=== PATIENT | male | born 1965 | race Caucasian/White ===

== ENCOUNTER 2020-07-27 13:48 | Outpatient (CLI) | payer OTHER, SELFPAY ==
--- NOTE | 2020-07-27 17:46 | XR_ITS ---
WS: [id number] Right hand, 2 views, 07/27/2020 Clinical Data: R21 - Rash and other nonspecific skin eruption Comparison: None. Findings: No fractures or dislocations are seen. The soft tissues are unremarkable. The joint space s are normal No periarticular demineralization or calcifications are seen. XR/XR hand RT 2V [id number] Impression: Negative right hand.
--- NOTE | 2020-07-27 17:46 | XR_ITS ---
WS: [id number] Left foot, 2 views, 07/27/2020 Clinical Data: R21 - Rash and other nonspecific skin eruption Comparison: None. Findings: No fractures or dislocations are seen. No bone destruction or erosion is noted. The joint spaces and soft tissues are normal. No periarticular demineralization or calcifications are seen. There is an Achilles spur. XR/XR foot LT 2V [id number] Impression: Negative left foot.
--- NOTE | 2020-07-27 17:46 | XR_ITS ---
WS: [id number] Lumbar spine, 3 views, 07/27/2020 Clinical Data: R21 - Rash and other nonspecific skin eruption Comparison: None. Findings: No compression fractures or subluxation is seen. There is degenerative disc narrowing at L5-S1. The t ransverse processes and SI joints are normal. There is anterior osteoarthritic change of all the lumbar vertebral bodies. Is a large amount of feca l material throughout the colon. There is minimal calcification of the posterior wall of the abdomina l aorta. XR/XR lumbar spine 2-3V* [id number] Impression: 1. Moderate osteoarthritic spurring of all lumbar vertebral bodies. 2. L5-S1 disc narrowing.
--- NOTE | 2020-07-27 17:46 | XR_ITS ---
WS: [id number] Right foot, 2 views, 07/27/2020 Clinical Data: R21 - Rash and other nonspecific skin eruption Comparison: Right foot, 03/21/2017. Findings: No fractures or dislocations are seen. No bone destruction or erosion is noted. The joint spaces and soft tissues are normal. No periarticular demineralization or calcifications are seen. XR/XR foot RT 2V [id number] Impression: Negative right foot.
--- NOTE | 2020-07-27 17:46 | XR_ITS ---
WS: [id number] Left hand, 2 views, 07/27/2020 Clinical Data: R21 - Rash and other nonspecific skin eruption Comparison: None. Findings: No fractures or dislocations are seen. The soft tissues are unremarkable. The joint spaces are normal No periarticular demineralization or calcifications are seen. XR/XR hand LT 2V [id number] Impression: Negative left hand.
[2020-07-27 18:31] LABS: C Reactive Protein 1.9 mg/L (0.0-4.9); Creatine Phosphokinase 65 U/L (39-308); Phosphorus 4.2 mg/dL (2.5-4.5); Vitamin B12 621 pg/mL (232-1245)
[2020-07-27 19:12] LABS: Hepatitis B Core AB, Total Non-Reactive (Nonreactive); Hepatitis B Surface Antigen Non-Reactive (Nonreactive); Hepatitis C Virus Antibody Non-Reactive (Nonreactive)
[2020-07-27 20:27] LABS: Erythrocyte Sedimentation Rate 9 mm/hr (0-10)
[2020-07-29 14:28] LABS: Cyclic Citrullinated Peptide <16 UNITS
[2020-07-30 11:57] LABS: COMPLEMENT COMPONENT C3C 160 mg/dL (82-185); COMPLEMENT COMPONENT C4C 26 mg/dL (15-53)
[2020-07-30 12:27] LABS: CENTROMERE B ANTIBODY <1.0 NEG AI (<1.0 NEG); JO-1 ANTIBODY <1.0 NEG AI (<1.0 NEG); RNP ANTIBODY <1.0 NEG AI (<1.0 NEG); SCL-70 ANTIBODY <1.0 NEG AI (<1.0 NEG); SJOGREN'S ANTIBODY (SS-A) <1.0 NEG AI (<1.0 NEG); SM ANTIBODY <1.0 NEG AI (<1.0 NEG); SS-B <1.0 NEG AI (<1.0 NEG)
[2020-07-30 12:58] LABS: COMPLEMENT, TOTAL (CH50) >60 U/mL (31-60)
[2020-07-30 14:58] LABS: ANA SCREEN, IFA NEGATIVE (NEGATIVE)
[2020-07-30 17:33] LABS: THYROID PEROXIDASE ANTIBODIES <1 IU/mL (<9)
[2020-08-01 13:59] LABS: HLA-B27 NEGATIVE (NEGATIVE)
[2020-08-01 14:00] LABS: DNA AB (DS) CRITHIDIA,IFA NEGATIVE (NEGATIVE)
== END 2020-07-27 13:49 | disposition home or self-care (01) ==
PROVIDERS: Family Provider Family Medicine; PCP Family Medicine; Visit Provider Internal Medicine
DX: R53.1 Weakness; M25.50 Pain in unspecified joint; R21 Rash and other nonspecific skin eruption; Z11.59 Encounter for screening for other viral diseases; Z11.1 Encounter for screening for respiratory tuberculosis; D86.9 Sarcoidosis, unspecified; M32.9 Systemic lupus erythematosus, unspecified
CPT/HCPCS: 36415; 72100; 73120; 73620; 82550; 82607; 83516; 84100; 85651; 86140; 86431; 86704; 86803; 86812; 87340; 99204

== ENCOUNTER 2020-07-29 11:01 | Outpatient (CLI) | payer OTHER, SELFPAY ==
[2020-07-31 14:33] LABS: Quantiferon Mitogen >10.00 IU/mL; Quantiferon Nil 0.02 IU/mL; Quantiferon TB Gold NEGATIVE (NEGATIVE)
== END 2020-07-29 11:02 | disposition home or self-care (01) ==
LOC: LAB 11:04
PROVIDERS: PCP Family Medicine; Visit Provider Internal Medicine
DX: M32.9 Systemic lupus erythematosus, unspecified (principal); R21 Rash and other nonspecific skin eruption
CPT/HCPCS: 36415; 86480

== ENCOUNTER → 2021-03-23 08:43 | Outpatient (BNVA) | payer OTHER, SELFPAY | PROVIDERS: PCP Family Medicine; Referring Provider Family Medicine; Visit Provider Urology | DX: N52.1 Erectile dysfunction due to diseases classified elsewhere (principal) | CPT/HCPCS: 81003 ==

== ENCOUNTER 2022-01-17 06:50 | Outpatient (CLI) | payer OTHER, SELFPAY ==
--- NOTE | 2022-01-17 07:11 | MR_ITS ---
WS: [id number] MRI LEFT KNEE HISTORY: M25.569 - Pain in unspecified knee COMPARISON: LEFT knee radiograph 10/25/2020 Anterior cruciate ligament: Mild increased signal throughout the ACL. No full-thickness tear. Posterior cruciate ligament: Intact. Medial collateral ligament: Intact. Posterior lateral corner structures: Intact. Medial menisci: Horizontal tear in the posterior horn extends to the inferior articular surface towar ds the free edge and body of the meniscus. Anterior horn is normal. Lateral meniscus: Partially subluxed meniscus from the joint space. Intrasubstance degeneration in th e posterior horn. In the body of the meniscus, seen best on the coronal image is increased T2 signal extending towards but not definitely contacting the inferior articular surface. Extensor mechanism: Distal quadriceps tendon and patellar tendons are intact. Fluid and soft tissue: Small joint effusion. No Padgett's cyst. Osseous and articular structures: Patellofemoral compartment: No marrow edema or chondromalacia. Medial compartment: Mild narrowing of the medial compartment. Very mild surface fraying along the car tilage. Small osteophytes. No marrow edema or fracture. Lateral compartment: Mild narrowing of the lateral compartment. Mild diffuse loss of cartilage with n o focal full-thickness defect. No marrow edema There is mild diffuse soft tissue edema surrounding the knee, greatest medially. MR/MR knee LT wo con* [id number] IMPRESSION: 1. Diffuse subcutaneous and soft tissue edema greatest around the medial knee. 2. Intrasubstance degeneration in the ACL but no tear. 3. Horizontal tear posterior horn medial meniscus extends to the free edge and body. 4. Intrasubstance degeneration in the posterior horn of the lateral meniscus e xtends but does not definitely contact the inferior articular surface. This sig nal predominantly involves the outer third of the meniscus. 5. Mild narrowing of the medial lateral compartments. No fracture or marrow ed demetrio.
== END 2022-01-17 06:51 | disposition home or self-care (01) ==
LOC: RAD 06:52
PROVIDERS: PCP Family Medicine; Visit Provider Family Medicine
DX: M25.562 Pain in left knee (principal)
CPT/HCPCS: 73721

== ENCOUNTER 2022-02-07 06:31 | Outpatient (CLI) | payer MEDICARE, SELFPAY ==
--- NOTE | 2022-02-07 07:19 | MR_ITS ---
WS: [id number] MRI RIGHT KNEE NONCONTRAST TECHNIQUE: Axial PD, coronal PD fat sat, coronal PD, sagittal PD, and sagittal PD fat-sat images obta ined. CLINICAL INFORMATION: PAIN IN RT KNEE COMPARISON: None. FINDINGS: Distal quadriceps and patella tendons are intact. Normal ACL and PCL. Moderate tricompartmental arthr itis. Grade III chondromalacia involving the medial and lateral joint compartments. Diffuse soft tiss ue edema about the knee. Small suprapatellar effusion. Chronic intrasubstance signal abnormality involving the medial and lateral meniscus. Tiny horizontal tear involving the posterior horn medial meniscus extending to the articular surface. Hypertrophic pa tella. Normal medial and lateral patellar retinaculum. Moderate chondromalacia involving the lateral patella facet. Normal MCL and LCL. Normal popliteus. MR/MR knee RT wo con* [id number] IMPRESSION: 1. Moderate tricompartmental arthritis with grade III chondromalacia involving the medial and lateral joint compartments. 2. Moderate chondromalacia patella worse involving the lateral patella facet. 3. Normal ACL and PCL. 4. Soft tissue edema about the knee. Small supra patellar effusion. 5. Tiny horizontal tear involving the posterior horn medial meniscus extending to the periphery. Chronic intrasubstance signal abnormality involving the medi al and lateral meniscus. 6. No other acute findings. Outbridge grading: grade III: partial-thickness cartilage loss with focal ulcer ation
== END 2022-02-07 06:32 | disposition home or self-care (01) ==
PROVIDERS: PCP Family Medicine; Visit Provider Family Medicine
DX: M25.561 Pain in right knee (principal); M13.861 Other specified arthritis, right knee; M22.41 Chondromalacia patellae, right knee; S83.241A Other tear of medial meniscus, current injury, right knee, initial encounter; X58.XXXA Exposure to other specified factors, initial encounter
CPT/HCPCS: 73721

== ENCOUNTER → 2022-02-08 14:41 | Outpatient (BNVA) | payer MEDICARE, SELFPAY | PROVIDERS: PCP Family Medicine; Visit Provider Specialist | DX: M17.0 Bilateral primary osteoarthritis of knee (principal) | CPT/HCPCS: 20610; 73560; 73565; 99213; 99214; J1100; J2795; J3301 ==

== ENCOUNTER → 2022-03-06 08:58 | Outpatient (BNVA) | payer MEDICARE, SELFPAY | PROVIDERS: PCP Family Medicine; Visit Provider Specialist | DX: M17.0 Bilateral primary osteoarthritis of knee (principal); L44.0 Pityriasis rubra pilaris | CPT/HCPCS: 99213; 99214 ==

== ENCOUNTER → 2022-04-19 09:41 | Outpatient (BNVA) | payer MEDICARE, SELFPAY | PROVIDERS: PCP Family Medicine; Visit Provider Nurse Practitioner Family | DX: I96 Gangrene, not elsewhere classified (principal); L97.812 Non-pressure chronic ulcer of other part of right lower leg with fat layer exposed | CPT/HCPCS: 11042; 11045; 87070; 87077; 87176; 87186; 87205; 99203; 99213 ==

== ENCOUNTER → 2022-04-26 09:35 | Outpatient (BNVA) | payer MEDICARE, SELFPAY | PROVIDERS: PCP Family Medicine; Visit Provider Thoracic Surgery (Cardiothoracic Vascular Surgery) | DX: I96 Gangrene, not elsewhere classified (principal); L97.812 Non-pressure chronic ulcer of other part of right lower leg with fat layer exposed | CPT/HCPCS: 11043; 11046 ==

== ENCOUNTER → 2022-05-01 10:40 | Outpatient (BNVA) | payer MEDICARE, SELFPAY | PROVIDERS: PCP Family Medicine; Visit Provider Thoracic Surgery (Cardiothoracic Vascular Surgery) | DX: I96 Gangrene, not elsewhere classified (principal); L97.812 Non-pressure chronic ulcer of other part of right lower leg with fat layer exposed | CPT/HCPCS: 11042; 11045; 97605; A6237 ==

== ENCOUNTER → 2022-05-08 10:27 | Outpatient (BNVA) | payer MEDICARE, SELFPAY | PROVIDERS: PCP Family Medicine; Visit Provider Thoracic Surgery (Cardiothoracic Vascular Surgery) | DX: I96 Gangrene, not elsewhere classified (principal); L97.812 Non-pressure chronic ulcer of other part of right lower leg with fat layer exposed | CPT/HCPCS: 11042; 11045; 97605; A6237; A6250; A6252 ==

== ENCOUNTER → 2022-05-15 10:35 | Outpatient (BNVA) | payer MEDICARE, SELFPAY | PROVIDERS: PCP Family Medicine; Visit Provider Thoracic Surgery (Cardiothoracic Vascular Surgery) | DX: T81.89XA Other complications of procedures, not elsewhere classified, initial encounter (principal); Y83.8 Other surgical procedures as the cause of abnormal reaction of the patient, or of later complication, without mention of misadventure at the time of the procedure; I96 Gangrene, not elsewhere classified | CPT/HCPCS: 97597; 97598; 97605; A6210; A6237; A6250 ==

== ENCOUNTER → 2022-05-23 10:21 | Outpatient (BNVA) | payer MEDICARE, SELFPAY | PROVIDERS: PCP Family Medicine; Visit Provider Nurse Practitioner Family | DX: I96 Gangrene, not elsewhere classified (principal); L97.812 Non-pressure chronic ulcer of other part of right lower leg with fat layer exposed | CPT/HCPCS: 11042; 11045; A6021 ==

== ENCOUNTER → 2022-05-29 10:23 | Outpatient (BNVA) | payer MEDICARE, SELFPAY | PROVIDERS: PCP Family Medicine; Visit Provider Nurse Practitioner Family | DX: I96 Gangrene, not elsewhere classified (principal); L97.812 Non-pressure chronic ulcer of other part of right lower leg with fat layer exposed | CPT/HCPCS: 11042; 11045 ==

== ENCOUNTER → 2022-06-05 09:17 | Outpatient (BNVA) | payer MEDICARE, SELFPAY | PROVIDERS: PCP Family Medicine; Visit Provider Thoracic Surgery (Cardiothoracic Vascular Surgery) | DX: I96 Gangrene, not elsewhere classified (principal); L97.812 Non-pressure chronic ulcer of other part of right lower leg with fat layer exposed | CPT/HCPCS: 97597; 97598; A6210 ==

== ENCOUNTER → 2022-06-12 09:43 | Outpatient (BNVA) | payer MEDICARE, SELFPAY | PROVIDERS: PCP Family Medicine; Visit Provider Thoracic Surgery (Cardiothoracic Vascular Surgery) | DX: I96 Gangrene, not elsewhere classified (principal); L97.812 Non-pressure chronic ulcer of other part of right lower leg with fat layer exposed | CPT/HCPCS: 11042; 11045; A6210 ==

== ENCOUNTER → 2022-07-05 10:28 | Outpatient (BNVA) | payer MEDICARE, SELFPAY | PROVIDERS: PCP Family Medicine; Visit Provider Thoracic Surgery (Cardiothoracic Vascular Surgery) | DX: T81.31XD Disruption of external operation (surgical) wound, not elsewhere classified, subsequent encounter (principal); Y83.8 Other surgical procedures as the cause of abnormal reaction of the patient, or of later complication, without mention of misadventure at the time of the procedure; I96 Gangrene, not elsewhere classified | CPT/HCPCS: 97597; A6212 ==

== ENCOUNTER → 2022-07-10 13:18 | Outpatient (BNVA) | payer MEDICARE, SELFPAY | PROVIDERS: PCP Family Medicine; Visit Provider Thoracic Surgery (Cardiothoracic Vascular Surgery) | DX: T81.31XD Disruption of external operation (surgical) wound, not elsewhere classified, subsequent encounter (principal); Y83.8 Other surgical procedures as the cause of abnormal reaction of the patient, or of later complication, without mention of misadventure at the time of the procedure; I96 Gangrene, not elsewhere classified | CPT/HCPCS: 97597 ==

== ENCOUNTER 2025-01-11 21:01 | Observation (INO) | payer MEDICARE, SELFPAY ==
[2025-01-11 21:06] VITALS: BP 151/81; PULSE 90; RESP 20; TEMP 37.9; O2SAT 95; BMI 28.2
--- NOTE | 2025-01-11 21:37 | XRR_ITS ---
PROCEDURE INFORMATION: Exam: XR Chest Exam date and time: 01/11/2025 9:55 PM Age: 59 years old Clinical indication: Shortness of breath; Lt lower lat chest/rib pain; No known injury; Excessive coughing TECHNIQUE: Imaging protocol: Radiologic exam of the chest. Views: 1 view. COMPARISON: No relevant prior studies available. FINDINGS: Lungs: There is peribronchial infiltrate in the left lower lobe which could represent some bronchitis or bronchopneumonia. There is mild peribronchial infiltrate in the right lower lobe and small rounded area of infiltrate peripherally at the right lung base also. Pleural spaces: Unremarkable. No pleural effusion. No pneumothorax. Heart/Mediastinum: Heart is within normal limits of size. Bones/joints: There are degenerative changes in the thoracic spine. There is healing fracture of the posterior left 7th rib. XR/XR chest 1V portable [id number] IMPRESSION: Basilar infiltrates which could represent some bronchitis or bronchopneumonia.
--- NOTE | 2025-01-11 21:38 | W.ED.SOB ---
Documented by User: MIRANDA Cook 01/11/25 23:59 HPI - SOB/Dyspnea General: Chief Complaint: Shortness of Breath/Dyspnea Stated Complaint: SOB\ABD Pain Time Seen by Provider: 01/11/25 21:14 Source: patient Mode of arrival: ambulatory Limitations: no limitations History of Present Illness: HPI Narrative: Patient is a 59-year-old male who presents to ED today with a main complaint of productive cough, shortness of breath, and bilateral rib pain. Patient states he has been ill for 3 to 4 days. He states he is coughing so much that his ribs are hurting. He has gotten very little rest secondary to his illness. No known fevers. He does report sweating although attributes this to possible opiate withdrawal. He states he was on chronic oxycodone 4 times a day over the past 2.5 years and reportedly quit this medication cold . He is complaining of diffuse abdominal pain. He has not had any vomiting. He does report a large amount of bowel movements over the past few days after stopping the opiates. No recent surgeries. No hemoptysis. MD elicited complaint: shortness of breath, cough and pain with inspiration Onset (ago): day(s) Timing: constant Severity: moderate Exacerbating factors: coughing Relieving factors: nothing Associated symptoms: Reports abdominal pain, chest congestion and chest pain (bilateral rib pain); Deny dizziness, extremity pain, fever(s), hemoptysis, lightheadedness, palpitations, syncope or vomiting Treatment prior to arrival: none Related Data Home Medications ?Medication ?Instructions ?Recorded ?Confirmed aspirin 81 mg tablet,delayed 81 mg PO DAILY 07/27/20 01/12/25 release (Adult Aspirin Regimen) nitroglycerin 0.4 mg sublingual 0.4 mg sublingual Q5M PRN Chest 07/27/20 01/12/25 tablet Pain spironolactone 25 mg tablet 25 mg PO DAILY 07/27/20 01/12/25 oxycodone 5 mg capsule 10 mg PO Q4H PRN Pain 03/23/21 01/12/25 Allergies Allergy/AdvReac Type Severity Reaction Status Date / Time coconut Allergy ALGY-Anaphy Verified 01/11/25 21:10 laxis Review of Systems Const: Reports: body aches; Denies: fever(s) ENMT: Denies: throat pain, odynophagia, ear or mastoid pain, nasal discharge, nasal congestion or sinus pain Card: Reports: chest pain (bilateral rib pain); Denies: palpitations, irregular heart rhythm, edema, swelling of feet/ankles, lightheadedness, syncope or pre-syncope Resp: Reports: dyspnea, productive cough, pain on inspiration, change in phlegm color and chest congestion; Denies: wheezing or hemoptysis GI: Reports: abdominal pain; Denies: vomiting or diarrhea : Denies: flank pain or dysuria Musc: Denies: neck pain, back pain, extremity pain, extremity swelling, joint pain, joint swelling or joint redness Skin/Breast: Denies: rash Neuro: Denies: headache(s) or dizziness PFSH ED PFSH: Medical History Pityriasis rubra Anxiety and depression Erectile dysfunction CAD (coronary artery disease) Surgical History History of tonsillectomy and adenoidectomy History of left ventricular assist device (LVAD) Family History Mother Diabetes Father Diabetes Hypertension Grandmother Diabetes Grandfather Diabetes Denies family history of Lupus (systemic lupus erythematosus) Rheumatoid arthritis Social History Smoking and tobacco/nicotine status: former use of tobacco/nicotine Alcohol intake: never Substance/Drug Use: never Marital status: / Current occupational status: disabled Physical Exam Const: COMMON NORMALS: no acute distress, average body habitus, patient oriented x3, no limitations, alert and well nourished GENERAL APPEARANCE: cooperative and ill appearing (mild) OTHER: low grade fevers HENMT: COMMON NORMALS: normocephalic and atraumatic HEAD & SCALP: normal to inspection, normocephalic and atraumatic Neck/C-Spine: COMMON NORMALS: no lymphadenopathy Chest: OTHER: bilateral lower rib pain; no crepitus Resp: COMMON NORMALS: normal respiratory effort AUSCULTATION: rhonchi Cardio: COMMON NORMALS: regular rate and regular rhythm RATE: regular rate RHYTHM: regular rhythm GI: COMMON NORMALS: Normal to inspection, nondistended, normoactive bowel sounds present, Soft to palpation and no masses INSPECTION: Yes normal to inspection AUSCULTATION: Yes normoactive bowel sounds PALPATION: Yes Soft to palpation and Yes Tenderness to palpation present (GI) (diffuse) : COMMON NORMALS: Yes no CVA tenderness BLADDER/KIDNEY EXAM: Yes no CVA tenderness Back/Pelvis: COMMON NORMALS: no CVA tenderness Extremity: COMMON NORMALS: no calf tenderness and no pedal edema NARRATIVE EXTREMITY EXAM: R lower leg amputation GENERAL: Yes normal exam except as noted Neuro: COMMON NORMALS: patient oriented x3 SENSORIUM/ORIENTATION: Yes alert Course Consultations: Consultation #1: Dr. Riley-agreeable to admit to obs Vital Signs: Vital signs: Vital Signs Temperature 98.7 F 01/12/25 04:00 Pulse Rate 92 01/12/25 04:00 Respiratory Rate 19 H 01/12/25 04:00 Blood Pressure 151/76 01/12/25 04:00 Pulse Oximetry 96 01/12/25 04:00 Oxygen Delivery Me thod Room Air 01/12/25 04:00 Oxygen Flow Rate 2 01/11/25 22:06 MDM - SOB/Dyspnea Medical Decision Making Patient has bilateral basilar infiltrates most likely consistent with bronchopneumonia given his low-grade fevers. He has a normal white count. His lactic is normal. He is not requiring oxygen. Procalcitonin is normal. His BNP is elevated at roughly 4500. No known history of CHF. He is not complaining of weight gain or swelling. Discussed potentially treating with IV antibiotics here in the ED and allowing discharge with oral antibiotics however patient is adamant he needs to be admitted to the hospital. Spoke to Dr. Riley who is agreeable to observation. Medical Records I reviewed the patient's medical records. Lab Data I reviewed the patient's lab results. 01/12/25 03:41 01/12/25 03:41 Labs/Radiology: Radiology Impressions Chest X-Ray 01/11/25 21:37 IMPRESSION: Basilar infiltrates which could represent some bronchitis or bronchopneumonia. Chest/Abdomen/Pelvis CT 01/11/25 22:07 IMPRESSION: Nodular pulmonary infiltrate worrisome for infectious or inflammatory disease, mostly involving the left lower lobe. IMPRESSION: 1. Cholelithiasis 2. No acute findings in the abdomen or pelvis. Laboratory Results WBC 6.07 10^3/uL (3.29-11.43) 01/11/25 21:45 RBC 4.19 10^6/uL (3.85-5.65) 01/11/25 21:45 Hgb 11.80 g/dL (11.27-16.99) 01/11/25 21:45 Hct 37.0 % (37-53) 01/11/25 21:45 MCV 88.3 fl (82-101) 01/11/25 21:45 MCH 28.2 pg (27-33) 01/11/25 21:45 MCHC 31.9 g/dL (30-55) 01/11/25 21:45 RDW 14.0 % (12.1-15.1) 01/11/25 21:45 Plt Count 189 10^3/cmm (157-399) 01/11/25 21:45 MPV 9.6 fL (7.4-10.4) 01/11/25 21:45 Neut % (Auto) 81.9 % 01/11/25 21:45 Lymph % (Auto) 9.7 % 01/11/25 21:45 Greer % (Auto) 7.6 % 01/11/25 21:45 Eos % (Auto) 0.0 % 01/11/25 21:45 Baso % (Auto) 0.3 % 01/11/25 21:45 Neut # (Auto) 4.97 10^3/uL (1.8-7.7) 01/11/25 21:45 Lymph # (Auto) 0.6 10^3/uL (0.8-4.8) L 01/11/25 21:45 Greer # (Auto) 0.5 10^3/uL (0.2-0.9) 01/11/25 21:45 Eos # (Auto) 0.0 10^3/uL (0.0-0.8) 01/11/25 21:45 Baso # (Auto) 0.0 10^3/uL (0.0-0.1) 01/11/25 21:45 Nucleated RBC % (auto) 0 % 01/11/25 21:45 Nucleated RBCs # 0.0 /100WBC 01/11/25 21:45 Sodium 132 mmol/L (136-145) L 01/11/25 21:45 Potassium 3.7 mmol/L (3.5-5.1) 01/11/25 21:45 Chloride 93 mmol/L (98-107) L 01/11/25 21:45 Carbon Dioxide 29 mmol/L (22-29) 01/11/25 21:45 Anion Gap 13.7 (5-19) 01/11/25 21:45 BUN 12 mg/dL (8-23) 01/11/25 21:45 Creatinine 0.8 mg/dL (0.7-1.2) 01/11/25 21:45 GFR Calculation 98.6 mL/min (90-130) 01/11/25 21:45 Glucose 212 mg/dL (65-115) H 01/11/25 21:45 Calculated Osmolality 280 mOsm/kg (285-295) L 01/11/25 21:45 Lactic Acid 1.5 mmol/L (0.5-2.2) 01/11/25 21:45 Calcium 8.3 mg/dL (8.5-10.5) L 01/11/25 21:45 Total Bilirubin 0.7 mg/dL (0.15-1.2) 01/11/25 21:45 AST 17 U/L (0-40) 01/11/25 21:45 ALT 11 U/L (0-41) 01/11/25 21:45 Alkaline Phosphatase 73 U/L (40-130) 01/11/25 21:45 Troponin T Baseline 29 ng/L (0-15) H 01/11/25 21:45 Troponin T 120 Minute 28.46 ng/L (0-15) H 01/11/25 23:45 Delta Troponin T -0.54 ABS# (0-10) L 01/11/25 23:45 NT-Pro-B Natriuret Pep 4589 pg/mL (0-125) H 01/11/25 21:45 Total Protein 6.8 g/dL (6.6-8.7) 01/11/25 21:45 Albumin 3.5 g/dL (3.5-5.2) 01/11/25 21:45 Globulin 3.3 g/dL (1.3-4.6) 01/11/25 21:45 Procalcitonin 0.05 ng/mL (0-0.5) 01/11/25 21:45 Influenza A (PCR) Negative (Negative) 01/11/25 22:01 Influenza Type B (PCR) Negative (Negative) 01/11/25 22:01 RSV (PCR) Negative (Negative) 01/11/25 22:01 SARS-CoV-2 (PCR) Negative (Negative) 01/11/25 22:01 All radiology interpretation(s) finalized by discharge Discharge Plan Discharge Patient Disposition: Placed in Observation Admit Provider: Gurvinder Riley Clinical Impression: Bilateral pneumonia Qualifiers: Pneumonia type: due to unspecified organism Lung location: lower lobe of lung Qualified Code(s): J18.9 - Pneumonia, unspecified organism Coding Level of Care Code ED Repertoire Manager for Chg Fwd Documented by User: Horace Daniels DO 01/12/25 04:29 HPI - SOB/Dyspnea General: Chief Complaint: Shortness of Breath/Dyspnea Stated Complaint: SOB\ABD Pain Time Seen by Provider: 01/11/25 21:14 Related Data Home Medications ?Medication ?Instructions ?Recorded ?Confirmed aspirin 81 mg tablet,delayed 81 mg PO DAILY 07/27/20 01/12/25 release (Adult Aspirin Regimen) nitroglycerin 0.4 mg sublingual 0.4 mg sublingual Q5M PRN Chest 07/27/20 01/12/25 tablet Pain spironolactone 25 mg tablet 25 mg PO DAILY 07/27/20 01/12/25 oxycodone 5 mg capsule 10 mg PO Q4H PRN Pain 03/23/21 01/12/25 Allergies Allergy/AdvReac Type Severity Reaction Status Date / Time coconut Allergy ALGY-Anaphy Verified 01/11/25 21:10 laxis [facility] ED PFSH: Medical History Pityriasis rubra Anxiety and depression Erectile dysfunction CAD (coronary artery disease) Surgical History History of tonsillectomy and adenoidectomy History of left ventricular assist device (LVAD) Family History Mother Diabetes Father Diabetes Hypertension Grandmother Diabetes Grandfather Diabetes Denies family history of Lupus (systemic lupus erythematosus) Rheumatoid arthritis Social History Smoking and tobacco/nicotine status: former use of tobacco/nicotine Alcohol intake: never Substance/Drug Use: never Marital status: / Current occupational status: disabled Course Vital Signs: Vital signs: Vital Signs Temperature 98.7 F 01/12/25 04:00 Pulse Rate 92 01/12/25 04:00 Respiratory Rate 19 H 01/12/25 04:00 Blood Pressure 151/76 01/12/25 04:00 Pulse Oximetry 96 01/12/25 04:00 Oxygen Delivery Me thod Room Air 01/12/25 04:00 Oxygen Flow Rate 2 01/11/25 22:06 MDM - SOB/Dyspnea Medical Decision Making Patient has bilateral basilar infiltrates most likely consistent with bronchopneumonia given his low-grade fevers. He has a normal white count. His lactic is normal. He is not requiring oxygen. Procalcitonin is normal. His BNP is elevated at roughly 4500. No known history of CHF. He is not complaining of weight gain or swelling. Discussed potentially treating with IV antibiotics here in the ED and allowing discharge with oral antibiotics however patient is adamant he needs to be admitted to the hospital. Spoke to Dr. Riley who is agreeable to observation. This patient was originally seen by Mrs. Cox?MARLENE Daniel? I agree with her history, evaluation, and treatment. Lab Data 01/12/25 03:41 01/12/25 03:41 Labs/Radiology: Radiology Impressions Chest X-Ray 01/11/25 21:37 IMPRESSION: Basilar infiltrates which could represent some bronchitis or bronchopneumonia. Chest/Abdomen/Pelvis CT 01/11/25 22:07 IMPRESSION: Nodular pulmonary infiltrate worrisome for infectious or inflammatory disease, mostly involving the left lower lobe. IMPRESSION: 1. Cholelithiasis 2. No acute findings in the abdomen or pelvis. Laboratory Results WBC 6.07 10^3/uL (3.29-11.43) 01/11/25 21:45 RBC 4.19 10^6/uL (3.85-5.65) 01/11/25 21:45 Hgb 11.80 g/dL (11.27-16.99) 01/11/25 21:45 Hct 37.0 % (37-53) 01/11/25 21:45 MCV 88.3 fl (82-101) 01/11/25 21:45 MCH 28.2 pg (27-33) 01/11/25 21:45 MCHC 31.9 g/dL (30-55) 01/11/25 21:45 RDW 14.0 % (12.1-15.1) 01/11/25 21:45 Plt Count 189 10^3/cmm (157-399) 01/11/25 21:45 MPV 9.6 fL (7.4-10.4) 01/11/25 21:45 Neut % (Auto) 81.9 % 01/11/25 21:45 Lymph % (Auto) 9.7 % 01/11/25 21:45 Greer % (Auto) 7.6 % 01/11/25 21:45 Eos % (Auto) 0.0 % 01/11/25 21:45 Baso % (Auto) 0.3 % 01/11/25 21:45 Neut # (Auto) 4.97 10^3/uL (1.8-7.7) 01/11/25 21:45 Lymph # (Auto) 0.6 10^3/uL (0.8-4.8) L 01/11/25 21:45 Greer # (Auto) 0.5 10^3/uL (0.2-0.9) 01/11/25 21:45 Eos # (Auto) 0.0 10^3/uL (0.0-0.8) 01/11/25 21:45 Baso # (Auto) 0.0 10^3/uL (0.0-0.1) 01/11/25 21:45 Nucleated RBC % (auto) 0 % 01/11/25 21:45 Nucleated RBCs # 0.0 /100WBC 01/11/25 21:45 Sodium 132 mmol/L (136-145) L 01/11/25 21:45 Potassium 3.7 mmol/L (3.5-5.1) 01/11/25 21:45 Chloride 93 mmol/L (98-107) L 01/11/25 21:45 Carbon Dioxide 29 mmol/L (22-29) 01/11/25 21:45 Anion Gap 13.7 (5-19) 01/11/25 21:45 BUN 12 mg/dL (8-23) 01/11/25 21:45 Creatinine 0.8 mg/dL (0.7-1.2) 01/11/25 21:45 GFR Calculation 98.6 mL/min (90-130) 01/11/25 21:45 Glucose 212 mg/dL (65-115) H 01/11/25 21:45 Calculated Osmolality 280 mOsm/kg (285-295) L 01/11/25 21:45 Lactic Acid 1.5 mmol/L (0.5-2.2) 01/11/25 21:45 Calcium 8.3 mg/dL (8.5-10.5) L 01/11/25 21:45 Total Bilirubin 0.7 mg/dL (0.15-1.2) 01/11/25 21:45 AST 17 U/L (0-40) 01/11/25 21:45 ALT 11 U/L (0-41) 01/11/25 21:45 Alkaline Phosphatase 73 U/L (40-130) 01/11/25 21:45 Troponin T Baseline 29 ng/L (0-15) H 01/11/25 21:45 Troponin T 120 Minute 28.46 ng/L (0-15) H 01/11/25 23:45 Delta Troponin T -0.54 ABS# (0-10) L 01/11/25 23:45 NT-Pro-B Natriuret Pep 4589 pg/mL (0-125) H 01/11/25 21:45 Total Protein 6.8 g/dL (6.6-8.7) 01/11/25 21:45 Albumin 3.5 g/dL (3.5-5.2) 01/11/25 21:45 Globulin 3.3 g/dL (1.3-4.6) 01/11/25 21:45 Procalcitonin 0.05 ng/mL (0-0.5) 01/11/25 21:45 Influenza A (PCR) Negative (Negative) 01/11/25 22:01 Influenza Type B (PCR) Negative (Negative) 01/11/25 22:01 RSV (PCR) Negative (Negative) 01/11/25 22:01 SARS-CoV-2 (PCR) Negative (Negative) 01/11/25 22:01 Discharge Plan Discharge Patient Disposition: Placed in Observation Admit Provider: Gurvinder Riley Clinical Impression: Bilateral pneumonia Qualifiers: Pneumonia type: due to unspecified organism Lung location: lower lobe of lung Qualified Code(s): J18.9 - Pneumonia, unspecified organism Coding Level of Care Code ED Repertoire Manager for Jaspreet Gonzales
[2025-01-11 21:52] LABS: Basophils % 0.3 %; Lymphocytes # 0.6 10^3/uL (0.8-4.8); Lymphocytes % 9.7 %; Mean Corpuscular HGB Conc 31.9 g/dL (30-55); Mean Corpuscular Hemoglobin 28.2 pg (27-33); Mean Corpuscular Volume 88.3 fl (82-101); Mean Platelet Volume 9.6 fL (7.4-10.4); Monocytes # 0.5 10^3/uL (0.2-0.9); Monocytes % 7.6 %; Neutrophils # 4.97 10^3/uL (1.8-7.7); Neutrophils % 81.9 %; Nucleated Red Blood Cells % 0 %; Platelet Count 189 10^3/cmm (157-399); Red Blood Count 4.19 10^6/uL (3.85-5.65); White Blood Count 6.07 10^3/uL (3.29-11.43)
[2025-01-11] MEDS: ketorolac 30 mg/mL INJ IVP (22:05)
[2025-01-11 22:06] VITALS: PULSE 80; RESP 20; O2SAT 97
--- NOTE | 2025-01-11 22:07 | CTR_ITS ---
PROCEDURE INFORMATION: Exam: CT Chest With Contrast; Diagnostic Exam date and time: 01/11/2025 10:21 PM Age: 59 years old Clinical indication: Other: N/a; Abdominal pain; Localized; Cough and shortness of breath; Prior surgery; Surgery date: 6+ months; Surgery type: History of lvad placement; C/O cough with SOB and left sided abd pain; Additional info: SOB, abdominal pain TECHNIQUE: Imaging protocol: Diagnostic computed tomography of the chest with contrast. Radiation optimization: All CT scans at this facility use at least one of these dose optimization techniques: automated exposure control; mA and/or kV adjustment per patient size (includes targeted exams where dose is matched to clinical indication); or iterative reconstruction. Contrast material: OMNI 350; Contrast volume: 100 ml; Contrast route: INTRAVENOUS (IV); COMPARISON: CR (CHEST, ) 01/11/2025 9:55 PM RADIATION DOSE METRICS: Total DLP (mGy-cm): 2450.46 FINDINGS: Limitations: Study somewhat limited due to streak artifact created by the patient being scanned with the arms at the sides. Lungs: There is a nodular infiltrate throughout the left lower lobe with centrilobular nodules in a tree-in-bud type distribution varying in size. This is worrisome for infectious or inflammatory disease such as infectious bronchiolitis. The posterior aspect of the lingula abutting the fissure is also involved. There are similar nodular opacities in the periphery of the right lower lobe but significantly less than on the previous examination worrisome for additional pneumonia. Pleural spaces: Unremarkable. No pneumothorax. No pleural effusion. Heart: Heart is within normal limits of size. Coronary arteries: There is moderate atherosclerotic calcification of the coronary arteries. Lymph nodes: There is some mildly prominent mediastinal lymph nodes with precarinal lymph node measuring 16 x 27 mm and mild subcarinal adenopathy with lymph nodes measuring up to 15 x 23 mm Vasculature: There is no thoracic aortic aneurysm or dissection. Bones/joints: The thoracic spine demonstrates moderate degenerative changes at multiple levels. There is no evidence of acute fracture. Soft tissues: Unremarkable. PROCEDURE INFORMATION: Exam: CT Abdomen And Pelvis With Contrast Exam date and time: 01/11/2025 10:21 PM Age: 59 years old Clinical indication: Other: N/a; Abdominal pain; Localized; Cough and shortness of breath; Prior surgery; Surgery date: 6+ months; Surgery type: History of lvad placement; C/O cough with SOB and left sided abd pain; Additional info: SOB, abdominal pain TECHNIQUE: Imaging protocol: Computed tomography of the abdomen and pelvis with contrast. Radiation optimization: All CT scans at this facility use at least one of these dose optimization techniques: automated exposure control; mA and/or kV adjustment per patient size (includes targeted exams where dose is matched to clinical indication); or iterative reconstruction. Contrast material: OMNI 350; Contrast volume: 100 ml; Contrast route: INTRAVENOUS (IV); COMPARISON: CR (CHEST, ) 01/11/2025 9:55 PM RADIATION DOSE METRICS: Total DLP (mGy-cm): 2450.46 FINDINGS: Limitations: Study somewhat limited due to streak artifact created by the patient being scanned with the arms at the sides. Liver: There is no focal abnormality within the liver. Gallbladder and biliary ducts: Dependent density within the gallbladder likely represents small stones or sludge. There is borderline thickness of the gallbladder wall. No pericholecystic fluid is identified. There is no common bile duct dilation. Pancreas: The pancreas is normal. Spleen: The spleen is normal. Adrenal glands: The adrenal glands are normal. Kidneys and ureters: The kidneys are normal. There is no evidence of hydronephrosis. There is no evidence of renal or ureteral calcifications. Stomach and bowel: There is no evidence of intestinal obstruction. Appendix: No evidence of appendicitis. Intraperitoneal space: There is no evidence of free intraperitoneal fluid. Vasculature: The aorta demonstrates mild atherosclerotic calcification. Incidentally noted is a normal variant circumaortic left renal vein. Lymph nodes: There is no evidence of lymphadenopathy. Urinary bladder: Unremarkable as visualized. Reproductive: The prostate demonstrates mild nonspecific enlargement. The seminal vesicles are normal. Bones/joints: The lumbar spine demonstrates moderate degenerative changes at multiple levels. L5 is partly sacralized on the right. No fracture is identified. Soft tissues: There is some mild subcutaneous edema anterior abdominal wall of uncertain significance. CT/CT chest abdpel w/*[id number] IMPRESSION: Nodular pulmonary infiltrate worrisome for infectious or inflammatory disease, mostly involving the left lower lobe. IMPRESSION: 1. Cholelithiasis 2. No acute findings in the abdomen or pelvis.
[2025-01-11 22:10] LABS: Lactic Sepsis W/Reflex 1.5 mmol/L (0.5-2.2)
[2025-01-11 22:11] LABS: Alanine Aminotransferase 11 U/L (0-41); Albumin Level 3.5 g/dL (3.5-5.2); Alkaline Phosphatase 73 U/L (40-130); Anion Gap 13.7 (5-19); Aspartate Amino Transferase 17 U/L (0-40); Blood Urea Nitrogen 12 mg/dL (8-23); Calcium 8.3 mg/dL (8.5-10.5); Carbon Dioxide 29 mmol/L (22-29); Chloride 93 mmol/L (98-107); Creatinine Clr Calc Pharmacy 130.7961; Globulin 3.3 g/dL (1.3-4.6); Glomerular Filtration Rate 98.6 mL/min (90-130); Glucose 212 mg/dL (65-115); Osmolality Calculated 280 mOsm/kg (285-295); Potassium 3.7 mmol/L (3.5-5.1); Sodium 132 mmol/L (136-145); Total Bilirubin 0.7 mg/dL (0.15-1.2); Total Protein 6.8 g/dL (6.6-8.7)
[2025-01-11] MEDS: iohexol 350 mg/mL 500 mL Btl (per mL) IV (22:26)
[2025-01-11 22:41] LABS: NT Pro B Type Natriuretic Pept 4589 pg/mL (0-125)
[2025-01-11 22:43] LABS: Influenza A NEGATIVE (Negative); Influenza B NEGATIVE (Negative); Respiratory Syncytial Virus Ce NEGATIVE (Negative); SARS-CoV-2 PCR NEGATIVE (Negative)
[2025-01-11 22:53] VITALS: PULSE 84; O2SAT 97
--- NOTE | 2025-01-11 22:59 | ECG_ITS ---
[employer] [facility] Test Date: 2025-01-11 Pat Name: Milan Moreno Department: Room: 269 Gender: Male Assistant Mechanic: : [id number] Requested By: Poornima Cox Order Number: [id number] Reading MD: NORRIS BREWER Measurements Intervals [place] Rate: 85 P: 53 MI: 191 QRS: 3 QRSD: 117 T: 69 QT: 401 QTc: 478 Interpretive Statements SINUS RHYTHM WITH OCCASIONAL SUPRAVENTRICULAR PREMATURE COMPLEXES SEPTAL MYOCARDIAL INFARCTION , PROBABLY OLD [40+ ms Q WAVE IN V1/V2] No previous ECG available for comparison Electronically Signed On 01-12-2025 20:58:54 CDT by NORRIS BREWER [email or web address] [id number]
[2025-01-11 23:30] LABS: Troponin(5th) Baseline 29 ng/L (0-15)
[2025-01-11 23:35] LABS: Procalcitonin 0.05 ng/mL (0-0.5)
--- NOTE | 2025-01-11 23:35 | PM.HP ---
Providers/Chief Complaint Primary Care Provider: Eleuterio Cantrell MD Chief Complaint: SOB\ABD Pain History of Present Illness Milan Moreno is a 59 year old male with a past medical history significant for anxiety, depression, coronary artery disease, erectile dysfunction, below the knee amputation, diabetes mellitus, chronic pain, and multiple other comorbidities who presents the emergency department with shortness of breath and cough x 4 days. Describes cough is copious and productive. Endorses associated nausea and vomiting. Endorses associated generalized weakness. Reports exertion worsens symptoms. Denies alleviating factors. Denies any recent antibiotic usage. In the emergency department, patient was found to have elevated temperature to 100.3, mildly hypertensive, and normal SpO2 on room air. CBC unremarkable. CMP with hyponatremia to 132 and hyperglycemia to 212. NT-proBNP elevated to 4589 pg/mL. Procalcitonin 0.05. CT chest abdomen pelvis showed no acute findings in the abdomen or pelvis. Chest findings showed nodular pulmonary infiltrate worrisome for infectious/inflammatory disease mostly in the left lower lobe. Reports he does not feel safe going home. Observation overnight for IV antibiotics discussed and patient is agreeable. Review of Systems Narrative: Patient also reports abdominal pain, notes recent weaning of home opioids, otherwise a complete review of systems was obtained and is negative except as stated in HPI. Medications/Allergies Home Medications ?Medication ?Instructions ?Recorded ?Confirmed ?Last Taken ?Type acitretin 25 mg capsule (Soriatane) 25 mg PO DAILY 07/27/20 03/06/22 Unknown History alprazolam 1 mg tablet (Xanax) 1 mg PO QID PRN 07/27/20 03/06/22 Unknown History aspirin 81 mg tablet,delayed 81 mg PO DAILY 07/27/20 03/06/22 Unknown History release (Adult Aspirin Regimen) furosemide 40 mg tablet 40 mg PO BID 07/27/20 03/06/22 Unknown History glipizide 10 mg tablet 10 mg PO DAILY 07/27/20 03/06/22 Unknown History hydroxyzine HCl 25 mg tablet 50 mg PO QID PRN 07/27/20 03/06/22 Unknown History lactulose 10 gram/15 mL oral 15 ml PO DAILY 07/27/20 03/06/22 Unknown History solution metformin 1,000 mg tablet 1,000 mg PO BID 07/27/20 03/06/22 Unknown History nitroglycerin 0.4 mg sublingual 0.4 mg sublingual Q5M PRN 07/27/20 03/06/22 Unknown History tablet prednisone 20 mg tablet 20 mg PO DAILY 07/27/20 03/06/22 Unknown History prochlorperazine maleate 10 mg 10 mg PO TID PRN 07/27/20 03/06/22 Unknown History tablet spironolactone 25 mg tablet 25 mg PO DAILY 07/27/20 03/06/22 Unknown History doxepin 25 mg capsule 25 mg PO DAILY PRN 03/23/21 03/06/22 Unknown History oxycodone 5 mg capsule 10 mg PO Q4H PRN 03/23/21 03/06/22 Unknown History potassium chloride 20 mEq 20 meq PO DAILY PRN 03/23/21 03/06/22 Unknown History tablet,extended release tanazidine PO TID 03/23/21 03/06/22 Unknown History sildenafil 100 mg tablet 100 mg PO DAILY PRN sexual 03/24/21 03/06/22 Unknown Rx activity #20 tabs tadalafil 20 mg tablet 20 mg PO DAILY PRN sexual activity 03/24/21 03/06/22 Unknown Rx #20 tabs linezolid 600 mg tablet (Zyvox) 600 mg PO BID wound infection #12 04/24/22 Unknown Rx tabs Allergies Allergy/AdvReac Type Severity Reaction Status Date / Time coconut Allergy ALGY-Anaphy Verified 01/11/25 21:10 laxis PFSH Acute PFSH: Medical History Pityriasis rubra Anxiety and depression Erectile dysfunction CAD (coronary artery disease) Surgical History History of tonsillectomy and adenoidectomy History of left ventricular assist device (LVAD) Family History Mother Diabetes Father Diabetes Hypertension Grandmother Diabetes Grandfather Diabetes Denies family history of Lupus (systemic lupus erythematosus) Rheumatoid arthritis Social History Smoking and tobacco/nicotine status: former use of tobacco/nicotine Alcohol intake: never Substance/Drug Use: never Marital status: / Current occupational status: disabled Vitals/I&O/Wt Last Vital Signs Temp 100.3 F H 01/11/25 21:06 Pulse 84 01/11/25 22:53 Resp 20 H 01/11/25 22:06 BP 151/81 01/11/25 21:06 Pulse Ox 97 01/11/25 22:53 O2 Del Method Nasal Cannula 01/11/25 22:06 O2 Flow Rate 2 01/11/25 22:06 Weight last 48 hrs Weight 105.233 kg Physical Exam Narrative: General: Patient is awake and alert. Head: Normocephalic. Atraumatic. EOM intact. Neck: No JVD. Cardiovascular: RRR. No gallops. No murmurs. No peripheral edema. Lungs: Bibasilar rhonchi. No use of accessory muscles, no crackles or wheezes. On room air. Skin: No jaundice. No rashes. Abdomen: Normal bowel sounds, abdomen soft and nontender. Genito Urinary: Genital exam not performed since complaints not related. Rectal: Rectal exam not performed since no symptoms indicated blood loss. Extremities: No cyanosis or clubbing. BKA with prosthesis. Musculoskeletal: No swollen or erythematous joints. Neurological: Moves all 4 extremities. No myoclonus. Data 01/11/25 21:45 01/11/25 21:45 A&P Assessment and plan (1) Community acquired pneumonia: (2) Pleurisy: (3) Diabetes mellitus type 2 in nonobese: (4) Chronic pain: (5) Chronic, continuous use of opioids: (6) Anxiety: (7) Depression: Plan Community-acquired pneumonia - CURB-65 score 0 - CT imaging reviewed - Procalcitonin normal - Check bacterial antigens - Start Ceftriaxone/azithromycin - Sputum culture Nausea/vomiting Hyponatremia/hypochloremia - Antiemetic as needed - Clear liquid diet, advance as tolerated T2DM with hyperglycemia - Hold oral medications - SSI Elevated NT proBNP - No sign of overt fluid overload on exam - Plan to continue home diuretics after list update Anxiety/depression - Plan to continue home meds after list update DVT ppx: Lovenox PDMP PDMP Reviewed: Not Reviewed Attestations Medical Necessity Statement*: Patient presents with productive cough and generalized weakness, found to have bilateral commune acquired pneumonia without sepsis or hypoxia with expected hospitalization not to cross 2 midnights for IV antibiotics and nausea control. Coding Level of Care Code Acute Code for Chg Fwd Diagnoses Community acquired pneumonia J18.9 Pleurisy R09.1 Diabetes mellitus type 2 in nonobese E11.9 Chronic pain G89.29 Chronic, continuous use of opioids F11.90 Anxiety F41.9 Depression F32.A
[2025-01-11 23:55] VITALS: BP 146/84
[2025-01-12] VITALS (8 sets, daily range): BP systolic 133–165; BP diastolic 76–95; PULSE 77–92; RESP 16–22; TEMP 36.6–37.3; O2SAT 90–97; BMI 29.9
[2025-01-12] MEDS: cefTRIAXone 1,000 mg SDV 1000 MG IVP (00:20)
[2025-01-12] MEDS: AZITHROMYCIN ADD-Vantage 500 MG in 0.9% NaCl ADD-Vantage 250 ML 250 MG IV (00:23)
[2025-01-12 00:24] LABS: Troponin 5 2HR 28.46 ng/L (0-15)
[2025-01-12 00:26] LABS: Troponin 5 2HR Delta -0.54 ABS# (0-10)
[2025-01-12] MEDS: ketorolac 10 mg Tablet PO (00:31)
--- NOTE | 2025-01-12 00:43 | PC.NURSE ---
cough meds this nurse offered pt cough medicine per nov and pt declined 'i usually only take toradol'
[2025-01-12] MEDS: ketorolac 30 mg/mL INJ 15 MG IVP ×2 (03:40→10:27)
[2025-01-12 03:49] LABS: Basophils % 0.4 %; Hematocrit 37.2 % (37-53); Lymphocytes # 0.7 10^3/uL (0.8-4.8); Lymphocytes % 13.4 %; Mean Corpuscular HGB Conc 31.7 g/dL (30-55); Mean Corpuscular Hemoglobin 28.2 pg (27-33); Mean Corpuscular Volume 88.8 fl (82-101); Mean Platelet Volume 9.9 fL (7.4-10.4); Monocytes # 0.4 10^3/uL (0.2-0.9); Monocytes % 8.1 %; Neutrophils % 77.5 %; Nucleated Red Blood Cells % 0 %; Platelet Count 186 10^3/cmm (157-399); Red Blood Count 4.19 10^6/uL (3.85-5.65); Red Cell Distribution Width 14.2 % (12.1-15.1); White Blood Count 5.16 10^3/uL (3.29-11.43)
[2025-01-12 04:06] LABS: Troponin 5 6HR 28.93 ng/L (0-15)
[2025-01-12 04:07] LABS: Anion Gap 13.6 (5-19); Blood Urea Nitrogen 15 mg/dL (8-23); Carbon Dioxide 29 mmol/L (22-29); Chloride 94 mmol/L (98-107); Creatinine Clr Calc Pharmacy 119.3546; Glomerular Filtration Rate 86.1 mL/min (90-130); Glucose 309 mg/dL (65-115); Magnesium 1.9 mg/dL (1.7-2.3); Osmolality Calculated 289 mOsm/kg (285-295); Potassium 3.6 mmol/L (3.5-5.1); Sodium 133 mmol/L (136-145)
[2025-01-12 04:08] LABS: Troponin 5 6HR Delta -0.07 ng/L (0-12)
[2025-01-12] MEDS: ondansetron 2 mg/ML SDV 2 mL 4 MG IVP (04:23)
[2025-01-12 05:57] LABS: Bilirubin Urine Negative (Negative); Blood Urine 2+ (Negative); Glucose Urine UA 3+ (Normal); Ketones Urine Trace (Negative); Leukocyte Esterase Urine Negative (Negative); Nitrate Urine Negative (Negative); Protein Urine 4+ (Negative); Urine Appearance Clear (CLEAR); Urine Color Dark Yellow (Yellow); pH Urine 5.5 (5-7)
[2025-01-12 06:01] LABS: Add Urine Microscopic? YES; Bacteria Urine None Seen /hpf; Hyaline Casts Urine 8.26 /lpf; Squamous Epithelial Cell Urine 0-5 /hpf (0-5); WBC Urine 0-5 /hpf (0-5)
[2025-01-12 06:30] LABS: Glucose Point of Care 323 mg/dL (70-110)
[2025-01-12 06:51] LABS: Specific Gravity, Urine 1.077 (1.005-1.030); UA Slide Review UA Slide Review Perf
[2025-01-12] MEDS: guaiFENesin-dextromethorphan UDC 10 mL 5 ML PO ×2 (07:10→11:48)
[2025-01-12] MEDS: insulin lispro 100 unit/1 mL SUBCUT ×4 (07:35→20:43)
[2025-01-12 11:04] LABS: Glucose Point of Care 221 mg/dL (70-110)
[2025-01-12] MEDS: lidocaine 5% Patch 1 PATCH TOPICAL ×2 (11:43→20:07)
[2025-01-12 16:05] LABS: Estmated Average Glucose 286; Hemoglobin A1C 11.6 % (4.0-6.0)
[2025-01-12 16:44] LABS: Procalcitonin 0.06 ng/mL (0-0.5); Thyroid Stimulating Hormone 0.99 uIU/mL (0.27-4.20); Vitamin B12 1543 pg/mL (232-1245)
[2025-01-12 16:55] LABS: Glucose Point of Care 215 mg/dL (70-110)
[2025-01-12 16:56] LABS: Iron 14 ug/dL (59-158); Percent Saturation 7.4 % (20-50); Total Iron Binding Capacity 189 mcg/dl; Unsaturated Iron Binding 175 ug/dL (112-347)
[2025-01-12] MEDS: benzonatate 100 mg Capsule 200 MG PO ×2 (17:17→20:44)
[2025-01-12] MEDS: amoxicillin-clav 875-125 mg Tablet 1 TAB PO (17:17)
[2025-01-12] MEDS: guaiFENesin 600 mg Tablet 1200 MG PO (17:17)
--- NOTE | 2025-01-12 20:08 | PC.NURSE ---
paitent resting in bed with eyes open. lidocane patch taken off per dayshift. patient has no complaints of pain at this time
[2025-01-12 20:31] LABS: Glucose Point of Care 211 mg/dL (70-110)
[2025-01-12] MEDS: diphenhydrAMINE 50 mg Capsule PO (20:43)
--- NOTE | 2025-01-12 22:38 | PC.NURSE ---
patient in bed with eyes open, patient pulled IV out and set it on the table. patient refusing to let nurse restart IV line. catheter intact upon removal, patient tolerated well. patient also refusing his midnight lovenox.
[2025-01-13 02:04] VITALS: BP 122/77; PULSE 82; RESP 16; TEMP 36.7; O2SAT 92
[2025-01-13 04:32] VITALS: BP 130/70; PULSE 79; RESP 16; TEMP 36.7; O2SAT 97
[2025-01-13 06:12] LABS: Basophils % 0.2 %; Eosinophils % 0.2 %; Hematocrit 36.8 % (37-53); Lymphocytes # 1.2 10^3/uL (0.8-4.8); Lymphocytes % 24.2 %; Mean Corpuscular HGB Conc 31.8 g/dL (30-55); Mean Corpuscular Hemoglobin 28.1 pg (27-33); Mean Corpuscular Volume 88.2 fl (82-101); Monocytes # 0.5 10^3/uL (0.2-0.9); Monocytes % 9.3 %; Neutrophils # 3.18 10^3/uL (1.8-7.7); Neutrophils % 65.7 %; Nucleated Red Blood Cells % 0 %; Platelet Count 199 10^3/cmm (157-399); Red Blood Count 4.17 10^6/uL (3.85-5.65); Red Cell Distribution Width 14.1 % (12.1-15.1); White Blood Count 4.84 10^3/uL (3.29-11.43)
[2025-01-13 06:30] LABS: Alanine Aminotransferase 13 U/L (0-41); Albumin Level 3.2 g/dL (3.5-5.2); Alkaline Phosphatase 63 U/L (40-130); Anion Gap 13.6 (5-19); Aspartate Amino Transferase 23 U/L (0-40); Blood Urea Nitrogen 14 mg/dL (8-23); Calcium 8.2 mg/dL (8.5-10.5); Carbon Dioxide 28 mmol/L (22-29); Chloride 97 mmol/L (98-107); Creatinine Clr Calc Pharmacy 112.8039; Globulin 3.2 g/dL (1.3-4.6); Glomerular Filtration Rate 98.6 mL/min (90-130); Glucose 152 mg/dL (65-115); Osmolality Calculated 283 mOsm/kg (285-295); Potassium 3.6 mmol/L (3.5-5.1); Sodium 135 mmol/L (136-145); Total Bilirubin 0.4 mg/dL (0.15-1.2); Total Protein 6.4 g/dL (6.6-8.7)
[2025-01-13 06:40] LABS: Chol HDL Ratio 4.28 mg/dL (1.0-5.00); Cholesterol 124 mg/dL (0-200); HDL Cholesterol 29 mg/dL (60-100); LDL Cholesterol Calculated 78 mg/dL (50-129); Triglycerides 83 mg/dL (0-150); VLDL Cholestrol Calculation 17 mg/dL (0-30)
[2025-01-13 06:57] LABS: Folate Level 18.4 ng/mL (4.5-32.2)
--- NOTE | 2025-01-13 07:05 | PC.NURSE ---
Pt refused morning blood glucose check, insulin and lidocaine patch.
[2025-01-13 07:06] LABS: Slide Review Slide Review Perform
[2025-01-13] MEDS: benzonatate 100 mg Capsule 200 MG PO (07:30)
[2025-01-13] MEDS: amoxicillin-clav 875-125 mg Tablet 1 TAB PO (07:30)
[2025-01-13] MEDS: azithromycin 250 mg Tablet 500 MG PO (07:31)
[2025-01-13 08:00] VITALS: BP 157/73; PULSE 83; RESP 16; TEMP 36.3; O2SAT 93
--- NOTE | 2025-01-13 09:13 | PM.DCS ---
Discharge Providers Date of Admission: 01/12/25 00:25 Date of Discharge: January 13, 2025 Attending Provider at Admission: Gurvinder Riley MD Attending Provider at Discharge: Parminder Gonzales MD Primary Care Provider: Eleuterio Cantrell MD Diagnoses at Discharge Discharge Diagnosis (1) Community acquired pneumonia: Status: Acute (2) Pleurisy: Status: Acute (3) Diabetes mellitus type 2 in nonobese: Status: Acute (4) Chronic pain: Status: Chronic (5) Chronic, continuous use of opioids: Status: Acute (6) Anxiety: Status: Acute (7) Depression: Status: Acute Reason for Visit Reason for Visit: SOB\ABD Pain Brief History: Milan Moreno is a 59 year old male with a past medical history significant for anxiety, depression, coronary artery disease, erectile dysfunction, below the knee amputation, diabetes mellitus, chronic pain, and multiple other comorbidities who presents the emergency department with shortness of breath and cough x 4 days. Describes cough is copious and productive. Endorses associated nausea and vomiting. Endorses associated generalized weakness. Reports exertion worsens symptoms. Denies alleviating factors. Denies any recent antibiotic usage. In the emergency department, patient was found to have elevated temperature to 100.3, mildly hypertensive, and normal SpO2 on room air. CBC unremarkable. CMP with hyponatremia to 132 and hyperglycemia to 212. NT-proBNP elevated to 4589 pg/mL. Procalcitonin 0.05. CT chest abdomen pelvis showed no acute findings in the abdomen or pelvis. Chest findings showed nodular pulmonary infiltrate worrisome for infectious/inflammatory disease mostly in the left lower lobe. Reports he does not feel safe going home. Observation overnight for IV antibiotics discussed and patient is agreeable. Hospital Course Hospital Course Patient was admitted to the hospital further evaluation and community acquired pneumonia. During hospitalization his cultures remain negative. He responded well to the treatment. He is able to ambulate without any concerns for hypoxia. He was found to have uncontrolled type 2 diabetes mellitus with A1c of more than 11. Treatment has been discussed with the patient he is agreeable to start on insulin treatment. He is not discharging diabetes stable condition on oral antibiotics for 5 more days for pneumonia, Lantus and lispro for type 2 diabetes mellitus advised to check fasting blood sugars daily to maintain a blood sugar diary and follow-up with a primary care provider within next 2 weeks for further adjustment of insulin as needed. Physical Exam Narrative: General: Patient is awake and alert. Head: Normocephalic. Atraumatic. EOM intact. Neck: No JVD. Cardiovascular: RRR. No gallops. No murmurs. No peripheral edema. Lungs: Bibasilar rhonchi. No use of accessory muscles, no crackles or wheezes. On room air. Skin: No jaundice. No rashes. Abdomen: Normal bowel sounds, abdomen soft and nontender. Genito Urinary: Genital exam not performed since complaints not related. Rectal: Rectal exam not performed since no symptoms indicated blood loss. Extremities: No cyanosis or clubbing. BKA with prosthesis. Musculoskeletal: No swollen or erythematous joints. Neurological: Moves all 4 extremities. No myoclonus. Discharge Data Studies Completed and Pending Completed Studies During Hospitalization Category Date Time Status CT chest abdomen pelvis [CT chest abdpel w/*[id number] Cat Scan 01/11/25 22:07 Completed ] Stat XR chest 1V portable [id number] Stat Exams 01/11/25 21:37 Completed Pending at discharge Category Date Time Status Blood Culture Stat Lab 01/11/25 00:15 Results MAG [Magnesium] AM LABS Lab 01/14/25 04:00 Ordered MAG [Magnesium] AM LABS Lab 01/15/25 04:00 Ordered Sputum Culture and Gram Stain Routine Lab 01/11/25 23:47 Uncollected Radiology Impressions Chest X-Ray 01/11/25 21:37 IMPRESSION: Basilar infiltrates which could represent some bronchitis or bronchopneumonia. Chest/Abdomen/Pelvis CT 01/11/25 22:07 IMPRESSION: Nodular pulmonary infiltrate worrisome for infectious or inflammatory disease, mostly involving the left lower lobe. IMPRESSION: 1. Cholelithiasis 2. No acute findings in the abdomen or pelvis. Microbiology 01/11/25 00:15 Blood Blood Culture - Preliminary NEGATIVE TO DATE 01/11/25 23:45 Blood Blood Culture - Preliminary NEGATIVE TO DATE 01/12/25 05:40 Urine,Clean Catch Bacterial Antigens - Final Laboratory Results WBC 4.84 10^3/uL (3.29-11.43) 01/13/25 05:00 RBC 4.17 10^6/uL (3.85-5.65) 01/13/25 05:00 Hgb 11.70 g/dL (11.27-16.99) 01/13/25 05:00 Hct 36.8 % (37-53) L 01/13/25 05:00 MCV 88.2 fl (82-101) 01/13/25 05:00 MCH 28.1 pg (27-33) 01/13/25 05:00 MCHC 31.8 g/dL (30-55) 01/13/25 05:00 RDW 14.1 % (12.1-15.1) 01/13/25 05:00 Plt Count 199 10^3/cmm (157-399) 01/13/25 05:00 MPV 10.0 fL (7.4-10.4) 01/13/25 05:00 Neut % (Auto) 65.7 % 01/13/25 05:00 Lymph % (Auto) 24.2 % 01/13/25 05:00 [place] % (Auto) 9.3 % 01/13/25 05:00 Eos % (Auto) 0.2 % 01/13/25 05:00 Baso % (Auto) 0.2 % 01/13/25 05:00 Neut # (Auto) 3.18 10^3/uL (1.8-7.7) 01/13/25 05:00 Lymph # (Auto) 1.2 10^3/uL (0.8-4.8) 01/13/25 05:00 [place] # (Auto) 0.5 10^3/uL (0.2-0.9) 01/13/25 05:00 Eos # (Auto) 0.0 10^3/uL (0.0-0.8) 01/13/25 05:00 Baso # (Auto) 0.0 10^3/uL (0.0-0.1) 01/13/25 05:00 Nucleated RBC % (auto) 0 % 01/13/25 05:00 Nucleated RBCs # 0.0 /100WBC 01/13/25 05:00 Sodium 135 mmol/L (136-145) L 01/13/25 05:00 Potassium 3.6 mmol/L (3.5-5.1) 01/13/25 05:00 Chloride 97 mmol/L (98-107) L 01/13/25 05:00 Carbon Dioxide 28 mmol/L (22-29) 01/13/25 05:00 Anion Gap 13.6 (5-19) 01/13/25 05:00 BUN 14 mg/dL (8-23) 01/13/25 05:00 Creatinine 0.8 mg/dL (0.7-1.2) 01/13/25 05:00 GFR Calculation 98.6 mL/min (90-130) 01/13/25 05:00 Glucose 152 mg/dL (65-115) H 01/13/25 05:00 POC Glucose 211 mg/dL (70-110) H 01/12/25 20:11 Estimat Average Glucose 286 01/12/25 03:41 Hemoglobin A1c 11.6 % (4.0-6.0) H 01/12/25 03:41 Calculated Osmolality 283 mOsm/kg (285-295) L 01/13/25 05:00 Lactic Acid 1.5 mmol/L (0.5-2.2) 01/11/25 21:45 Calcium 8.2 mg/dL (8.5-10.5) L 01/13/25 05:00 Phosphorus 3.0 mg/dL (2.5-4.5) 01/12/25 03:41 Magnesium 2.0 mg/dL (1.7-2.3) 01/13/25 05:00 Iron 14 ug/dL (59-158) L 01/12/25 03:41 TIBC 189 mcg/dl 01/12/25 03:41 % Saturation 7.4 % (20-50) L 01/12/25 03:41 Unsat Iron Binding 175 ug/dL (112-347) 01/12/25 03:41 Total Bilirubin 0.4 mg/dL (0.15-1.2) 01/13/25 05:00 AST 23 U/L (0-40) 01/13/25 05:00 ALT 13 U/L (0-41) 01/13/25 05:00 Alkaline Phosphatase 63 U/L (40-130) 01/13/25 05:00 Troponin T Baseline 29 ng/L (0-15) H 01/11/25 21:45 Troponin T 120 Minute 28.46 ng/L (0-15) H 01/11/25 23:45 Delta Troponin T -0.54 ABS# (0-10) L 01/11/25 23:45 Troponin T Hi Sens 6Hr 28.93 ng/L (0-15) H 01/12/25 03:41 Troponin T Hi Sens 6Hr Delta -0.07 ng/L (0-12) L 01/12/25 03:41 NT-Pro-B Natriuret Pep 4589 pg/mL (0-125) H 01/11/25 21:45 Total Protein 6.4 g/dL (6.6-8.7) L 01/13/25 05:00 Albumin 3.2 g/dL (3.5-5.2) L 01/13/25 05:00 Globulin 3.2 g/dL (1.3-4.6) 01/13/25 05:00 Triglycerides 83 mg/dL (0-150) 01/13/25 05:00 Cholesterol 124 mg/dL (0-200) 01/13/25 05:00 LDL Cholesterol, Calc 78 mg/dL (50-129) 01/13/25 05:00 Total VLDL Cholesterol 17 mg/dL (0-30) 01/13/25 05:00 HDL Cholesterol 29 mg/dL (60-100) L 01/13/25 05:00 Cholesterol/HDL Ratio 4.28 mg/dL (1.0-5.00) 01/13/25 05:00 Vitamin B12 1543 pg/mL (232-1245) H 01/12/25 03:41 Folate 18.4 ng/mL (4.5-32.2) 01/13/25 05:00 Procalcitonin 0.06 ng/mL (0-0.5) 01/12/25 03:41 TSH 0.99 uIU/mL (0.27-4.20) 01/12/25 03:41 Urine Color Dark yellow (Yellow) A 01/12/25 05:40 Urine Appearance Clear (CLEAR) 01/12/25 05:40 Urine pH 5.5 (5-7) 01/12/25 05:40 Ur Specific [place] 1.077 (1.005-1.030) H 01/12/25 05:40 Urine Protein 4+ (Negative) A 01/12/25 05:40 Urine Glucose (UA) 3+ (Normal) H 01/12/25 05:40 Urine Ketones Trace (Negative) 01/12/25 05:40 Urine Blood 2+ (Negative) A 01/12/25 05:40 Urine Nitrate Negative (Negative) 01/12/25 05:40 Urine Bilirubin Negative (Negative) 01/12/25 05:40 Urine Urobilinogen 1.0 mg/dL (Negative) 01/12/25 05:40 Ur Leukocyte Esterase Negative (Negative) 01/12/25 05:40 Urine RBC 3-5 /hpf (0-2) 01/12/25 05:40 Urine WBC 0-5 /hpf (0-5) 01/12/25 05:40 Ur Squamous Epith Cells 0-5 /hpf (0-5) 01/12/25 05:40 Amorphous Sediment Not Reportable 01/12/25 05:40 Urine Bacteria None seen /hpf (NONE) 01/12/25 05:40 Hyaline Casts 8.26 /lpf 01/12/25 05:40 Influenza A (PCR) Negative (Negative) 01/11/25 22:01 Influenza Type B (PCR) Negative (Negative) 01/11/25 22:01 RSV (PCR) Negative (Negative) 01/11/25 22:01 SARS-CoV-2 (PCR) Negative (Negative) 01/11/25 22:01 Vitals Last Vital Signs Temp 98.1 F 01/13/25 04:32 Pulse 79 01/13/25 04:32 Resp 16 01/13/25 04:32 BP 130/70 01/13/25 04:32 Pulse Ox 97 01/13/25 04:32 O2 Del Method Room Air 01/13/25 04:32 O2 Flow Rate 2 01/11/25 22:06 Discharge Plan Discharge Patient Disposition: Home Condition: Stable Prescriptions: New azithromycin 250 mg Tablet 500 mg PO DAILY Qty: 6 0RF lidocaine 5 % Adhesive Patch,Medicated 1 patch topical [id number] Qty: 15 0RF amoxicillin-pot clavulanate 875-125 mg Tablet 1 tab PO BID Qty: 10 0RF (DME) lancets Misc See Rx Instructions .ROUTE .MEDSUPPLY Qty: 100 0RF Rx Instructions: As directed (DME) blood-glucose meter [Blood Glucose Monitoring] Kit See Rx Instructions .ROUTE .MEDSUPPLY Qty: 1 0RF Rx Instructions: As directed insulin glargine [Lantus Solostar U-100 Insulin] 100 unit/mL (3 mL) insulin pen 20 unit SUBCUT QPM Qty: 15 0RF insulin lispro [Humalog KwikPen Insulin] 100 unit/mL insulin pen 2 unit SUBCUT TID Qty: 15 0RF Continued aspirin [Adult Aspirin Regimen] 81 mg tablet,delayed release (DR/EC) 81 mg PO DAILY spironolactone 25 mg tablet 25 mg PO DAILY nitroglycerin 0.4 mg tablet, sublingual 0.4 mg sublingual Q5M PRN (Reason: Chest Pain) Rx Instructions: do not exceed 3 doses per episode oxycodone 5 mg capsule 10 mg PO Q4H PRN (Reason: Pain) Discharge Orders: Discharge Order (Routine); Ordered 01/13/25 Ordered By: Parminder Gonzales Referrals: Eleuterio Cantrell MD [Primary Care Provider] - 01/21/25 1:30 pm Discharge Diet: Diabetic Discharge Activity: Resume usual activity and Increase activity as tolerated Patient Instructions: Diabetes and Diet, Amoxicillin/Clavulanate Potassium (By mouth), Azithromycin (By mouth), Lidocaine (On the skin), Insulin Glargine (By injection) (Lantus, Lantus SoloStar, Toujeo, Semglee), Insulin Lispro (By injection) (Humalog, Humalog Pen, Lispro-PFC,..., Opioid Safety, Pain Management, Pneumonia Stoplight Discharge Attestations Time Spent in Discharge Care*: greater than 30 min Specific Discharge Activities: educating patient, discussing with pcp/other providers, discussing with patient case coordinator/social workers/dc planners, documenting/other paperwork and evaluating patient/reviewing data Status at Discharge: Cognitive status at discharge: cognitively intact, Behavioral status at discharge: can be uncooperative, Functional status at discharge: uses cane/walker, Overall status at discharge: patient is back to baseline Quality Metrics Clinical Quality Measures [ No reported AMI, CVA or VTE this stay] Coding Level of Care Code 62369 Total time (in minutes) for Discharge: 65 Diagnoses Community acquired pneumonia J18.9 Pleurisy R09.1 Diabetes mellitus type 2 in nonobese E11.9 Chronic pain G89.29 Chronic, continuous use of opioids F11.90 Anxiety F41.9 Depression F32.A
--- NOTE | 2025-01-13 10:13 | PC.CHAP ---
Pastoral Care Encounter/Spiritual Assessment Type of Contact [] Declined lithostripper visit [] Patient/Family/Request visit [] Outpatient visit [] Follow-up visit [] Physician referral [] Code/Alert [x] Routine visit [] Staff referral [] Actively dying [] Patient sleeping [] Family support [] [] Out of room [] Palliative care [] [] Receiving care in room [] Pre-surgical visit [] Trauma [] Long length of stay [] ICU visit [] Other: Relational/Emotional Strength [] Patient feels connected with others/family/visitors/staff [] Distress [] Loneliness/isolation [] Abandonment Spirituality of Patient [] Person of Lakisha [] Attends Mosque of their [place]isha [] Believes in Prayer [] Reads Bible or Quaker materials [x] There are Spiritual issues to be addressed Combatant Diver Qualified Interventions [] Prayer [x] Active listening [x] Non-anxious presence [x] Spiritual/emotional support [] Crisis/trauma care [] Spiritual counseling [] Bereavement support [] Provided bereavement packet [] Provided Bible/devotional materials [] Provided toy/stuffed animal, coloring book to patient or family member [] Provided Communion [] Anointing/[place] [] Salvation [x] Completed spiritual assessment [] Other: Impact on Illness or Injury [] Angry [] Fearful [] Anxious [] Often cries [] Exhaustion [] Unable to work [] Unable to attend taoism [] Unable to walk/stand [] Unable to read [] Unable to drive [] Unable to eat/drink [] Unable to sleep [] Unable to be with family [] Patient intubated [] Other: Summary Time spent with patient 5 min
[2025-01-13 10:56] LABS: Glucose Point of Care 317 mg/dL (70-110)
[2025-01-13] MEDS: insulin lispro 100 unit/1 mL SUBCUT (11:05)
[2025-01-13 12:00] VITALS: BP 154/84; PULSE 82; RESP 18; TEMP 36.8; O2SAT 91
--- NOTE | 2025-01-13 13:49 | PC.NURSE ---
This nurse was the pt care nurse the day of 01/12/25 and 01/13/25. Both days, pt was very negative, irritable and rude to all staff stating that the doctors should go back to their country Each time pt was given insulin, he would state Not everyone's sugar is high enough for insulin but when asked if he did not want it, he would agree that he still did. Pt complained of neck pain in which this nurse obtained a lidocaine patch order for, however, not long after applying, pt asked that it be taken off. He also refused morning accucheck and insulin this morning. Pt took out his own IV and refused another one if needed. Pt also asked for his IV pain meds in which he could not receive due to refusal of another IV. This nurse offered him PO tylenol and he stated I don't want it. I'm not messing around with something as little as tylenol. Pt stated that he was going to write a letter to the hospital as everyone here is treating him for everything other than what he really needed help with.
== END 2025-01-13 12:04 | disposition home or self-care (01) ==
LOC: ER 01-12 00:09 → MEDSURG 01-12 00:47
PROVIDERS: Admitting Provider Internal Medicine; Emergency Provider Physician Assistant; PCP Family Medicine; Visit Provider Student in an Organized Health Care Education/Training Program
DX: J18.9 Pneumonia, unspecified organism (principal); I25.10 Atherosclerotic heart disease of native coronary artery without angina pectoris; R09.1 Pleurisy; E11.9 Type 2 diabetes mellitus without complications; G89.29 Other chronic pain; F11.90 Opioid use, unspecified, uncomplicated; F41.9 Anxiety disorder, unspecified; F32.A Depression, unspecified; Z79.82 Long term (current) use of aspirin; Z79.84 Long term (current) use of oral hypoglycemic drugs; Z95.811 Presence of heart assist device; Z87.891 Personal history of nicotine dependence; Z89.519 Acquired absence of unspecified leg below knee
CPT/HCPCS: 36415; 36416; 71045; 71260; 74177; 80048; 80053; 80061; 81001; 82607; 82746; 82962; 83036; 83540; 83550; 83605; 83735; 83880; 84100; 84145; 84443; 84484; 85025; 86403; 87040; 87637; 93005; 96372; G0378; J0456; J0696; J1815; J1885; J2405; J7050; J9999; Q0144; Q0163

== ENCOUNTER → 2025-09-01 11:53 | Outpatient (BNVA) | payer MEDICARE, SELFPAY | PROVIDERS: PCP Family Medicine; Referring Provider Family Medicine; Visit Provider Specialist | DX: R20.0 Anesthesia of skin (principal); R20.2 Paresthesia of skin; R29.898 Other symptoms and signs involving the musculoskeletal system | CPT/HCPCS: 95911 ==